=== PATIENT | male | born 1955 | race Caucasian/White ===

== ENCOUNTER 2022-05-22 08:30 | Emergency (ER) | payer BC, OTHER ==
[2022-05-22] MEDS ORDERED: NA CHLORIDE 0.9% 1,000 ML ONE (08:59)
--- NOTE | 2022-05-22 09:00 | RAD REPORT ---
EXAM DESCRIPTION: RAD - Chest Single View - 05/22/2022 8:54 am CLINICAL HISTORY: CHEST PAIN Chest pain. COMPARISON: CHEST PA AND LAT 2 VIEW dated 11/20/2012 FINDINGS: Portable technique limits examination quality. The lungs are grossly clear. The heart is normal in size. No displaced fractures. IMPRESSION: No acute intrathoracic process suspected.
[2022-05-22 09:04] LABS: Absolute Lymphocytes (CBC) 1.4 K/uL (0.7-4.9); Hematocrit 43.4 % (39.6-49.0); Lymphocytes % 17.1 % (15.3-44.8); MPV 8.6 fL (7.6-11.3); RBC Red Blood Cell Count 4.82 M/uL (4.33-5.43)
[2022-05-22 09:11] LABS: Protime INR 1.05
[2022-05-22 09:28] LABS: Bilirubin Direct 0.2 mg/dL (0-0.2); Bilirubin Total 0.7 mg/dL (0.2-1.0); Magnesium 2.6 mg/dL (1.8-2.4); Potassium 4.2 mmol/L (3.5-5.1); Protein, Total 7.6 g/dL (6.4-8.2); Troponin High Sensitivity 5.3 pg/mL (<58.9)
--- NOTE | 2022-05-22 10:07 | RAD REPORT ---
EXAM DESCRIPTION: CTAbdomen Pelvis W Contrast - 05/22/2022 9:57 am CLINICAL HISTORY: Abdominal pain. r/o colitis, diverticulitis COMPARISON: No comparisons TECHNIQUE: Biphasic CT imaging of the abdomen and pelvis was performed with 100 ml non-ionic IV cont rast. All CT scans are performed using dose optimization technique as appropriate and may include automated exposure control or mA/KV adjustment according to patient size. FINDINGS: The lung bases are clear. The liver, spleen, pancreas, adrenal glands and kidneys are within normal limits. No bowel obstruction, free air, free fluid or abscess. The appendix is normal. No evidence of signi ficant lymphadenopathy. Mild lumbar degenerative changes. IMPRESSION: No acute intra-abdominal or pelvic finding.
--- NOTE | 2022-05-22 10:59 | ER ---
Nurse's Notes [facility] Name: Silvino Grande Age: 67 yrs Sex: Male : 1955 Arrival Date: 05/22/2022 Time: 08:31 Bed 7 Private MD: Ivan Guardado T Diagnosis: Diarrhea, unspecified;Viral Syndrome;Chest pain, unspecified;Dehydration Presentation: 05/22 08:39 Chief complaint: Patient states: CP began this morning around 0600 that radiated to vg1 Left arm, stated blurred vision, dizziness, SOB and diarrhea for five days. Pt appears to be diaphoretic. Coronavirus screen: Vaccine status: Patient reports being unvaccinated. Client denies travel out of the [place] in the last 14 days. Ebola Screen: Patient negative for fever greater than or equal to 101.5 degrees Fahrenheit, and additional compatible Ebola Virus Disease symptoms Patient denies exposure to infectious person. Initial Sepsis Screen: Does the patient meet any 2 criteria? No. Patient's initial sepsis screen is negative. Does the patient have a suspected source of infection? No. Patient's initial sepsis screen is negative. Risk Assessment: Do you want to hurt yourself or someone else? Patient reports no desire to harm self or others. Onset of symptoms was May 22, 2022. 08:39 Method Of Arrival: Wheelchair vg1 08:39 Acuity: MECHELLE 2 vg1 Triage Assessment: 08:40 General: Appears uncomfortable, obese, Behavior is cooperative. Pain: Complains of pain vg1 in abdomen Pain radiates to left arm Pain currently is 6 out of 10 on a pain scale. Pain began 2 hours ago. Cardiovascular: Chest pain is described as Pain is 6 out of 10 on a pain scale. Respiratory: Reports shortness of breath at rest on exertion Airway is patent Respiratory effort is even, unlabored. Derm: Skin is clammy, Skin is pale. Historical: - Allergies: 08:40 No Known Allergies; vg1 - Immunization history:: Client reports having NOT received the Covid vaccine. - Social history:: Smoking status: Patient reports the use of cigarette tobacco products, smokes one-half pack cigarettes per day. Screenin:06 Abuse screen: Denies threats or abuse. Denies injuries from another. Nutritional bp screening: No deficits noted. Tuberculosis screening: No symptoms or risk factors identified. Fall Risk None identified. Assessment: 08:45 General: SEE TRIAGE NOTE. bp 10:00 Reassessment: No changes from previously documented assessment. Patient and/or family bp updated on plan of care and expected duration. Pain level reassessed. 11:09 Reassessment: PT ORTHOSTATIC NEGATIVE. bp Vital Signs: 08:39 BP 100 / 89; Pulse 77; Resp 14; Temp 98.7; Pulse Ox 97% on R/A; Pain 6/10; vg1 10:04 BP 103 / 75; Pulse 71; Resp 13; Pulse Ox 97% ; bp 11:05 BP 123 / 71 Supine; Pulse 78; Resp 18; Pulse Ox 96% ; bp 11:08 BP 112 / 67 Standing; Pulse 80; Resp 15; Pulse Ox 96% ; bp ED Course: 08:31 Patient arrived in ED. am2 08:32 Ivan Guardado MD is Private Physician. am2 08:35 Bulmaro Byrne MD is Attending Physician. rn 08:37 Claudio Vega RN is Primary Nurse. bp 08:39 Yesenia Harper FNP is PHCP. jh7 08:40 Triage completed. vg1 08:40 Arm band placed on. vg1 08:55 Inserted saline lock: 20 gauge in right forearm, using aseptic technique. Blood bp collected. 08:56 XRAY Chest (1 view) In Process Unspecified. EDMS 09:59 CT Abd/Pelvis - IV Contrast Only In Process Unspecified. EDMS 10:06 Patient has correct armband on for positive identification. Bed in low position. Call bp light in reach. Side rails up X2. Client placed on continuous cardiac and pulse oximetry monitoring. NIBP monitoring applied. 10:58 Ivan Guardado MD is Referral Physician. jh7 11:09 No provider procedures requiring assistance completed. IV discontinued. Patient bp maintains SpO2 saturation greater than 95% on room air. Administered Medications: 08:55 Drug: NS 0.9% 1000 ml Route: IV; Rate: 1 bolus; Site: right forearm; bp 11:10 Follow up: IV Status: Completed infusion; IV Intake: 1000ml bp Intake: 11:10 IV: 1000ml; Total: 1000ml. bp Outcome: 10:59 Discharge ordered by . jh7 11:41 Discharged to home ambulatory. bp 11:41 Condition: stable 11:41 Discharge instructions given to patient, Instructed on discharge instructions, follow up and referral plans. medication usage, Demonstrated understanding of instructions, follow-up care, medications, Prescriptions given X 1. 11:42 Patient left the ED. bp Signatures: Dispatcher [employer] EDMS Bulmaro Byrne MD MD rn Moreno, Amanda am2 Claudio Vega, RN RN Joseline Clayton RN RN 1 Yesenia Harper, AIRCRAFT ENGINE MECHANIC SUPERVISOR AIRCRAFT ENGINE MECHANIC SUPERVISOR 7 Corrections: (The following items were deleted from the chart) 11:09 11:08 BP 112 / 67; Pulse 80bpm; Resp 15bpm; Pulse Ox 96%; bp bp
--- NOTE | 2022-05-22 10:59 | EDPHYS ---
Physician Documentation [facility] Name: Silvino Grande Age: 67 yrs Sex: Male : 1955 Arrival Date: 05/22/2022 Time: 08:31 Bed 7 Private MD: Ivan Guardado T ED Physician Bulmaro Byrne HPI: 05/22 08:43 This 67 yrs old Male presents to ER via Wheelchair with complaints of Chest Pain, Blood jh7 Pressure Problem, Arm Pain. 08:43 Onset: The symptoms/episode began/occurred at 06:00. Associated signs and symptoms: jh7 Pertinent positives: diarrhea, shortness of breath. Patient reports chest pain radiating to left arm starting at 6:00 this morning. States that when he stood up his blood pressure dropped 50 points. Reports that he has had diarrhea since Sunday with lower abdominal pain/cramping. Reports that his PCP is Dr. Guardado. States that he takes a statin, but has no other medical problems. States that he is a smoker.. Historical: - Allergies: 08:40 No Known Allergies; vg1 - Immunization history:: Client reports having NOT received the Covid vaccine. - Social history:: Smoking status: Patient reports the use of cigarette tobacco products, smokes one-half pack cigarettes per day. ROS: 08:43 Constitutional: Negative for fever, chills, and weight loss, Eyes: Negative for injury, jh7 pain, redness, and discharge, ENT: Negative for injury, pain, and discharge, Neck: Negative for injury, pain, and swelling, Respiratory: Negative for shortness of breath, cough, wheezing, and pleuritic chest pain, Back: Negative for injury and pain, MS/Extremity: Negative for injury and deformity, Skin: Negative for injury, rash, and discoloration. 08:43 Cardiovascular: Positive for chest pain, Negative for palpitations. 08:43 Abdomen/GI: Positive for abdominal pain, diarrhea, Negative for nausea and vomiting. 08:43 Neuro: Positive for weakness, Negative for altered mental status, headache, loss of consciousness, syncope. 08:43 All other systems are negative. Exam: 08:43 Constitutional: This is a well developed, well nourished patient who is awake, alert, jh7 and in no acute distress. Head/Face: Normocephalic, atraumatic. Eyes: Pupils equal round and reactive to light, extra-ocular motions intact. Lids and lashes normal. Conjunctiva and sclera are non-icteric and not injected. Cornea within normal limits. Periorbital areas with no swelling, redness, or edema. Neck: Trachea midline, no thyromegaly or masses palpated, and no cervical lymphadenopathy. Supple, full range of motion without nuchal rigidity, or vertebral point tenderness. No Meningismus. Cardiovascular: Regular rate and rhythm with a normal S1 and S2. No gallops, murmurs, or rubs. Normal PMI, no JVD. No pulse deficits. Respiratory: Lungs have equal breath sounds bilaterally, clear to auscultation and percussion. No rales, rhonchi or wheezes noted. No increased work of breathing, no retractions or nasal flaring. Back: No spinal tenderness. No costovertebral tenderness. Full range of motion. Skin: Warm, dry with normal turgor. Normal color with no rashes, no lesions, and no evidence of cellulitis. MS/ Extremity: Pulses equal, no cyanosis. Neurovascular intact. Full, normal range of motion. Neuro: Awake and alert, GCS 15, oriented to person, place, time, and situation. Motor strength 5/5 in all extremities. Sensory grossly intact. Normal gait. 08:43 Abdomen/GI: Inspection: abdomen appears normal, Bowel sounds: normal, Palpation: mild abdominal tenderness, in the right lower quadrant and left lower quadrant. 08:43 Skin: Appearance: Color: pale, Temperature: normal temperature, Moisture: normal moisture. 10:14 ECG was reviewed by the Attending Physician. [facility] Vital Signs: 08:39 BP 100 / 89; Pulse 77; Resp 14; Temp 98.7; Pulse Ox 97% on R/A; Pain 6/10; vg1 10:04 BP 103 / 75; Pulse 71; Resp 13; Pulse Ox 97% ; bp 11:05 BP 123 / 71 Supine; Pulse 78; Resp 18; Pulse Ox 96% ; bp 11:08 BP 112 / 67 Standing; Pulse 80; Resp 15; Pulse Ox 96% ; bp MDM: 08:35 Patient medically screened. rn 10:30 Differential diagnosis: Acute HI, gastroenteritis, dehydration, colitis, [facility] diverticulitis. Data reviewed: vital signs, nurses notes, lab test result(s), EKG, radiologic studies, CT scan, plain films. Data interpreted: Pulse oximetry: is 96 %. Interpretation: normal. Counseling: I had a detailed discussion with the patient and/or guardian regarding: the historical points, exam findings, and any diagnostic results supporting the discharge/admit diagnosis, to return to the emergency department if symptoms worsen or persist or if there are any questions or concerns that arise at home. Response to treatment: the patient's symptoms have resolved after treatment, the patient's pain is gone, Patient able to ambulate without any chest pain or shortness of breath. Reports that weakness significantly improved after fluids.. 05/22 08:41 Order name: Basic Metabolic Panel; Complete Time: 09:41 05/22 08:41 Order name: CBC with Diff; Complete Time: 09:17 05/22 08:41 Order name: LFT's; Complete Time: 09:41 05/22 08:41 Order name: Magnesium; Complete Time: 09:41 [facility] 05/22 08:41 Order name: NT PRO-BNP; Complete Time: 09:41 05/22 08:41 Order name: PT-INR; Complete Time: 09:17 05/22 08:41 Order name: Troponin HS; Complete Time: 09:41 [facility] 05/22 08:41 Order name: XRAY Chest (1 view); Complete Time: 09:17 05/22 08:41 Order name: EKG; Complete Time: 08:41 [facility] 05/22 08:41 Order name: Cardiac monitoring; Complete Time: 08:47 05/22 08:41 Order name: EKG - Nurse/Tech; Complete Time: 08:46 05/22 08:41 Order name: CT Abd/Pelvis - IV Contrast Only; Complete Time: 10:10 05/22 08:41 Order name: Lipase; Complete Time: 09:41 [facility] 05/22 08:41 Order name: IV Saline Lock; Complete Time: 08:56 [facility] 05/22 08:41 Order name: Labs collected and sent; Complete Time: 08:56 [facility] 05/22 08:41 Order name: O2 Per Protocol; Complete Time: 08:47 [facility] 05/22 08:41 Order name: O2 Sat Monitoring; Complete Time: 08:47 05/22 09:17 Order name: Orthostatics; Complete Time: 11:10 jh7 EC:39 Rate is 69 beats/min. Rhythm is regular. QRS Carr is Normal. RI interval is normal at 7 148 msec. QRS interval is normal at 92 msec. QT interval is normal at 394 msec. No Q waves. Clinical impression: NSR w/ Non-specific ST/T Changes. Administered Medications: 08:55 Drug: NS 0.9% 1000 ml Route: IV; Rate: 1 bolus; Site: right forearm; bp 11:10 Follow up: IV Status: Completed infusion; IV Intake: 1000ml bp Disposition Summary: 05/22/22 10:59 Discharge Ordered Location: Home [facility] Problem: new [facility] Symptoms: have improved [facility] Condition: Stable [facility] Diagnosis - Diarrhea, unspecified jh7 - Viral Syndrome jh7 - Chest pain, unspecified jh7 - Dehydration [facility] Followup: [facility] - With: Ivan Guardado MD - When: 2 - 3 days - Reason: Recheck today's complaints Discharge Instructions: - Discharge Summary Sheet 7 - Nonspecific Chest Pain, Adult jh7 - Dehydration, Adult jh7 - Diarrhea, Adult jh7 Forms: - Work release form bd - Medication Reconciliation Form 7 - Thank You Letter [facility] Prescriptions: - Levsin 0.125 mg Oral Tablet - take 1 tablet by ORAL route every 8 hours; 30 tablet; Refills: 0, Product jh7 Selection Permitted Addendum: 05/25/2022 06:27 Co-signature as Attending Physician, Bulmaro Byrne MD. r n Signatures: Dispatcher [employer] EDBulmaro Chambers MD MD rn Peltier, Brian RN Joseline Sandhu RN RN 1 Yesenia Harper FNP [place] [id number]
[2022-05-22 11:57] VITALS: TEMP 98.7
[2022-05-22 12:08] VITALS: O2SAT 96
[2022-05-22 12:10] VITALS: BP 112/67
--- NOTE | 2022-05-23 14:00 | EKG ---
Test Date: 2022-05-22 Test Time: 08:39:28 Staffing Consultant: BP MEASUREMENT RESULTS: Intervals: Rate: 69 [place]: 148 QRSD: 92 QT: 394 QTc: 422 [place]: P: 45 [place]: 148 QRS: 77 T: 227 INTERPRETIVE STATEMENTS: Sinus rhythm with premature supraventricular complexes T wave abnormality, consider inferolateral ischemia Abnormal ECG Compared to ECG 07/31/2012 14:19:08 Atrial premature complex(es) now present T-wave abnormality now present Possible ischemia now present Electronically Signed On 05-23-22 13:59:40 CDT by Aristides He
== END 2022-05-22 11:42 | disposition home or self-care (01) ==
LOC: ER 08:30
DX: R07.9 Chest pain, unspecified (principal); E86.0 Dehydration; B34.9 Viral infection, unspecified; R19.7 Diarrhea, unspecified; F17.210 Nicotine dependence, cigarettes, uncomplicated
CPT/HCPCS: 96361; 93005; 85025; 80048; 36415; 83735; 85610; 80076; 84484; 83690; 83880; 74177; 71045; 96360; 99284; Q9967; J7030